=== PATIENT | male | born 1975 | race Caucasian/White ===

== ENCOUNTER 2018-06-22 07:10 | Emergency (ER) | payer BC ==
[2018-06-22 07:22] VITALS: BP 137/100
--- NOTE | 2018-06-22 07:53 | UC ---
Abdominal Pain Male HPI - HPI Summary HPI Summary: This is scribe [facility] documenting for attending Hans Brown MD. Patient is a 43 y/o M c/o abd pain onset ~1 day ago. Pain is located in the LLQ , described as spasms and rated a 5/10. Assoc. Sx: Nausea. Denies: V/D, constipation, fever. I, Dr. Brown, personally performed the services described in this documentation as scribed in my presence and it is both accurate and complete. - History of Current Complaint Chief Complaint: UCAbdominalPain Stated Complaint: ABD PAIN Time Seen by Provider: 06/22/18 07:19 Hx Obtained From: Patient Onset/Duration: Sudden Onset, Lasting Days, Still Present Pain Intensity: 4 Pain Scale Used: 0-10 Numeric Location: Discrete At: LLQ Radiates: No Character: Other - Spasms Associated Signs And Symptoms: Positive: Nausea. Negative: Vomiting, Diarrhea - Allergies/Home Medications Allergies/Adverse Reactions: Allergies Allergy/AdvReac Type Severity Reaction Status Date / Time bee stings Allergy Severe Anaphylatic Uncoded 06/22/18 08:52 Shock Home Medications: Home Medications EPINEPHrine SYR* [EPINEPHphrine SYR*] 0.1 mg IM SEE INSTRUCTIONS 06/22/18 [ History] PMH/Surg Hx/FS Hx/Imm Hx Endocrine History: Other Other Endocrine History: NEG: DM Cardiovascular History: Other Other Cardiovascular History: NEG: CAD, HTN - Surgical History Surgical History: Yes Surgery Procedure, Year, and Place: Cerebral angiogram for benign tumor. TONSILECTOMY. VASECTOMY - Family History Known Family History: Negative: Cardiac Disease, Hypertension, Diabetes - Social History Occupation: Employed Full-time Lives: With Family Alcohol Use: Daily Alcohol Amount: 2-3 beers Substance Use Type: None Smoking Status (MU): Current Every Day Smoker Type: Smokeless Tobacco Amount Used/How Often: 1 can every 3 days Have You Smoked in the Last Year: Yes - Immunization History Most Recent Tetanus Shot: WITHIN 5 YEARS Review of Systems Constitutional: Other - NEG: fever. Gastrointestinal: Nausea, Other - NEG: Vomiting, diarrhea, constipation. All Other Systems Reviewed And Are Negative: Yes Physical Exam - Summary Physical Exam Summary: VITAL SIGNS: Reviewed. GENERAL: Patient is a well-developed and nourished Male who is lying comfortable in the stretcher. Patient is not in any acute respiratory distress. HEAD AND FACE: Normocephalic EYES: PERRLA, EOMI x 2. EARS: Hearing grossly intact. MOUTH: Oropharynx within normal limits. NECK: Supple, trachea is midline, no adenopathy, no JVD, no carotid bruit. CHEST: Symmetric, no tenderness at palpation LUNGS: Clear to auscultation bilaterally. No wheezing or crackles. CVS: Regular rate and rhythm, S1 and S2 present, no murmurs or gallops appreciated. ABDOMEN: LLQ tenderness, Bowel sounds are normal. No abdominal abnormal pulsations. EXTREMITIES: Full ROM in all major joints, no edema, no cyanosis or clubbing. NEURO: Alert and oriented x 3. No acute neurological deficits. Speech is normal and follows Triage Information Reviewed: Yes Vital Signs: Initial Vital Signs Temp 96.8 F 06/22/18 07:17 Pulse 82 06/22/18 07:17 Resp 16 06/22/18 07:17 BP 137/100 06/22/18 07:17 Pulse Ox 98 06/22/18 07:17 Vital Signs Reviewed: Yes Abd Pain Male Course/Dx - Course Course Of Treatment: Patient is a 43-year-old male with the left upper quadrant pain. The patient is tender in the left flank and now is in the left upper quadrant. Differential diagnosis would be a kidney stone versus diverticulitis. Therefore, patient will be referred to the emergency department for further w/o and management. Patient declined ambulance transport. The patient was driving himself. Patient is hemoglobin after stable alert oriented 3. - Differential Dx/Clinical Impression Provider Diagnoses: lower abdominal pain Discharge - Sign-Out/Discharge Documenting (check all that apply): Patient Departure All imaging exams completed and their final reports reviewed: No Studies - Discharge Plan Condition: Stable Disposition: HOME-RECOMMEND TO ED Patient Education Materials: Acute Abdominal Pain (ED) Referrals: Benny Lopez DO [Primary Care Provider] - 3 Days Additional Instructions: Patient was recommended to go to the emergency room for further workup and management. The patient declined ambulance transfer. RETURN TO URGENT CARE FOR ANY WORSENING OR NEW SYMPTOMS. - Billing Disposition and Condition Condition: STABLE Disposition: Home-Recommend to ED - Attestation Statements Document Initiated by Scribe: Yes Documenting Scribe: [facility] Provider For Whom Scribe is Documenting (Include Credential): Hans Brown MD. Scribe Attestation: IPhong, scribed for Hans Brown MD. on 06/22/18 at 1553. Scribe Documentation Reviewed: Yes Provider Attestation: The documentation as recorded by the jayleenibPhong wallace accurately reflects the service I personally performed and the decisions made by me, Hans Brown MD.
== END 2018-06-22 07:58 | disposition home health service (06) ==
LOC: UCEAST 07:10
DX: R10.32 Left lower quadrant pain (principal); R10.12 Left upper quadrant pain; F17.290 Nicotine dependence, other tobacco product, uncomplicated
CPT/HCPCS: 99212; G0463

== ENCOUNTER 2018-06-22 08:30 | Emergency (ER) | payer BC ==
--- NOTE | 2018-06-22 08:56 | ED ---
Abdominal Pain/Male - HPI Summary HPI Summary: Pt. is a 43-year-old is emergency department for left-sided abdominal pain that started yesterday. Pt. describes pain as being intermittent and sharp in nature. Pain is located under his left ribs and radiates into for quadrant. Associated symptoms of nausea and chills. Denies vomiting, urinary symptoms, chest pain, shortness of breath. Patient does note a 3 day history of constipation. Patient denies significant past medical history. Symptoms are her in severity. Movement makes symptoms worse. Rest makes symptoms better. - History of Current Complaint Chief Complaint: EDAbdPain Stated Complaint: ABD PAIN Time Seen by Provider: 06/22/18 08:49 Hx Obtained From: Patient Pain Intensity: 4 - Allergies/Home Medications Allergies/Adverse Reactions: Allergies Allergy/AdvReac Type Severity Reaction Status Date / Time bee stings Allergy Severe Anaphylatic Uncoded 06/22/18 08:52 Shock PMH/Surg Hx/FS Hx/Imm Hx Previously Healthy: Yes Endocrine/Hematology History: Denies: Hx Diabetes, Hx Thyroid Disease Cardiovascular History: Denies: Hx Hypertension, Hx Pacemaker/ICD Respiratory History: Denies: Hx Asthma, Hx Chronic Obstructive Pulmonary Disease (COPD) GI History: Denies: Hx Ulcer History: Denies: Hx Renal Disease Sensory History: Denies: Hx Hearing Aid Psychiatric History: Denies: Hx Panic Disorder - Surgical History Surgery Procedure, Year, and Place: Cerebral angiogram for benign tumor. TONSILECTOMY. VASECTOMY Infectious Disease History: No Infectious Disease History: Denies: Hx Hepatitis, Hx Human Immunodeficiency Virus (HIV), Traveled Outside the [place] in Last 30 Days - Family History Known Family History: Negative: Cardiac Disease, Hypertension, Diabetes - Social History Occupation: Employed Full-time Lives: With Family Alcohol Use: Daily Alcohol Amount: 2-3 beers Substance Use Type: Reports: Marijuana Substance Use Comment - Amount & Last Used: last used @ 1 month ago Smoking Status (MU): Former Smoker Type: Smokeless Tobacco Amount Used/How Often: 1 can every 3 days Have You Smoked in the Last Year: Yes Review of Systems Positive: Chills. Negative: Fever Cardiovascular: Negative Negative: Palpitations Respiratory: Negative Negative: Shortness Of Breath Positive: Abdominal Pain, Nausea. Negative: Vomiting, Diarrhea Genitourinary: Negative Negative: dysuria, frequency, flank pain, hematuria Neurological: Negative All Other Systems Reviewed And Are Negative: Yes Physical Exam Triage Information Reviewed: Yes Vital Signs On Initial Exam: Initial Vitals Temp Pulse Resp BP Pulse Ox 97.7 F 72 18 132/103 99 06/22/18 08:40 06/22/18 08:40 06/22/18 08:40 06/22/18 08:40 06/22/18 08:40 Vital Signs Reviewed: Yes Appearance: Positive: Well-Appearing - Pt. lying in bed in NAD. present. Skin: Positive: Warm, Dry Head/Face: Positive: Normal Head/Face Inspection Eyes: Positive: Normal, EOMI Neck: Positive: Supple Respiratory/Lung Sounds: Positive: Clear to Auscultation, Breath Sounds Present Cardiovascular: Positive: Normal, RRR Abdomen Description: Positive: Other: - Abdomen is soft pain with palpation to the left upper quadrant and left lower quadrant into the suprapubic region with guarding. No rebound tenderness or rigidity. Neurological: Positive: Normal, CN Intact II-III Psychiatric: Positive: Affect/Mood Appropriate Diagnostics - Vital Signs Vital Signs Temp Pulse Resp BP Pulse Ox 06/22/18 08:40 97.7 F 72 18 132/103 99 - Laboratory Result Diagrams: 06/22/18 09:08 06/22/18 09:08 Lab Statement: Any lab studies that have been ordered have been reviewed, and results considered in the medical decision making process. Abdominal Pain Fem Course/Dx - Course Course Of Treatment: Patient presenting with left-sided abdominal pain. He is afebrile with stable vital signs. Will obtain basic blood work in urinalysis. CT scan ordered for further evaluation. He was given IV fluids and pain medication. Blood work and urinalysis are unremarkable. Based on exam concern for diverticulitis, CT scan contrast ordered. CT scan shows diverticulitis without abscess or complications, reading per radiology. Results were discussed with patient and . His blood work is unremarkable. We'll start on Cipro and Flagyl. Patient declined pain medication. Advised clear liquid diet. Advised high-fiber diet and to use stool softener for constipation. He' ll follow up with family doctor in his return to the ER for increased pain, fever, vomiting or if concerned. Patient understands and agrees with plan. - Diagnoses Differential Diagnosis/HQI/PQRI: Appendicitis, Bowel Obstruction, Constipation, Diverticulitis, Gall Bladder Disease, Hepatitis, Ischemic Bowel, Pancreatitis, Pneumonia, Renal Colic, Ureteral Stone, Urinary Tract Infection Provider Diagnoses: Diverticulitis Discharge - Sign-Out/Discharge Documenting (check all that apply): Patient Departure - Discharge Plan Condition: Good Disposition: HOME Prescriptions: Ciprofloxacin HCl [Cipro] 500 mg PO Q12HR #20 tablet metroNIDAZOLE [Flagyl 500 MG TAB] 500 mg PO TID 30 Days #1 tab Patient Education Materials: Diverticulitis (ED) Referrals: Benny Lopez DO [Primary Care Provider] - Additional Instructions: Schedule a follow up appointment Take antibiotics as directed Clear liquid diet x 3-5 days Return to ER for increased pain, fever, vomiting or if concerned - Billing Disposition and Condition Condition: GOOD Disposition: Home
[2018-06-22] MEDS ORDERED: Ketorolac INJ* 30 MG/ML 1 ML VIAL IV PUSH ONE (09:01)
[2018-06-22] MEDS ORDERED: NS 0.9% 1000 ML* 1,000 ML IV ONE (09:01)
[2018-06-22 09:14] LABS: ABS Basophils 0.1 10^3/ul (0-0.2); ABS Eosinophils 0.1 10^3/ul (0-0.6); ABS Lymphocytes 2.1 10^3/ul (1.0-4.8); ABS Neutrophils 6.5 10^3/ul (1.5-7.7); ABS Nucleated RBC 0 10^3/ul; Eosinophil % 1.3 % (0-6); Hematocrit 46 % (42-52); Hemoglobin 15.7 g/dl (14.0-18.0); Lymphocyte % 21.5 % (25-47); Mean Corpuscular HGB Conc 34 g/dl (31-36); Mean Corpuscular Hemoglobin 27 pg (27-31); Mean Corpuscular Volume 80 fL (80-94); Mean Platelet Volume 7.6 um3 (7.4-10.4); Nucleated Red Blood Cells % 0.3; Platelet Count 260 10^3/ul (150-450); Red Blood Count 5.72 10^6/ul (4.00-5.40); Red Cell Distribution Width 14 % (10.5-15); White Blood Count 9.8 10^3/ul (3.5-10.8)
[2018-06-22 09:30] LABS: EGFR Non-African American 80.6 (>60)
[2018-06-22 10:08] LABS: Urine Appearance Clear; Urine Blood Negative (Negative); Urine Color Yellow; Urine Ketones Negative (Negative); Urine Protein Negative (Negative); Urine Specific Gravity 1.016 (1.010-1.030); Urine Urobilinogen Negative (Negative)
[2018-06-22] MEDS ORDERED: Iohexol 300* (CONTRAST) 10 ML SDV IV ONE (10:23)
--- NOTE | 2018-06-22 10:48 | RAD ---
CLINICAL HISTORY: LLQ pain COMPARISON: None TECHNIQUE: Multiple contiguous axial CT scans were obtained of the abdomen and pelvis after the administration of intravenous contrast. Coronal and sagittal multiplanar reformations are submitted for review. Oral contrast was administered. Delayed images were obtained through the abdomen. FINDINGS: LUNG BASES: The lung bases are clear. LIVER: The liver is diffusely low in attenuation compared to the spleen. There are no focal hepatic parenchymal masses. The liver measures 19.7 cm in long axis. BILE DUCTS: There is no intrahepatic or extrahepatic biliary dilatation. GALLBLADDER: The gallbladder is normal, without pericholecystic inflammatory change. PANCREAS: The pancreas is normal, without mass or ductal dilatation. SPLEEN: Normal in size and appearance. UPPER GI TRACT: Evaluation of the gastrointestinal tract is limited by incomplete gastric distention. The upper GI tract is unremarkable. SMALL BOWEL AND MESENTERY: The small bowel is normal in contour, course, and caliber. There is no obstruction or dilatation. COLON: There is diverticulosis of the sigmoid colon with stranding of the pericolonic fat with associated mucosal thickening. There is fluid tracking along the lateroconal fascia on the left.. There is no loculated fluid collection to suggest abscess. There is a tubular, vermiform, hollow viscus that is blind ending, and originates from the cecum, consistent with a normal appendix. There is no periappendiceal inflammatory change. This is best seen on axial images 40 through 54. ADRENALS: Normal bilaterally. KIDNEYS: The kidneys are normal in shape, size, contour, and axis. There is no hydronephrosis or nephrolithiasis. BLADDER: The bladder is smooth in contour. PELVIC ORGANS: The prostate gland is normal. The seminal vesicles are symmetric. AORTA: There is mild calcific atherosclerotic disease of the abdominal aorta and its branches, without aneurysmal dilatation IVC: Unremarkable LYMPH NODES: There is no lymphadenopathy by size criteria. ABDOMINAL WALL: There is no evidence for abdominal wall hernia. BONES AND SOFT TISSUES: There are mild diffuse degenerative changes. OTHER: None IMPRESSION: 1. SIGMOID DIVERTICULITIS WITHOUT LOCULATED FLUID COLLECTION TO SUGGEST ABSCESS. 2. HEPATOMEGALY WITH FATTY INFILTRATION OF THE LIVER.
[2018-06-22 11:24] VITALS: BP 143/93
== END 2018-06-22 11:24 | disposition home or self-care (01) ==
LOC: ED 08:30
DX: K57.92 Diverticulitis of intestine, part unspecified, without perforation or abscess without bleeding (principal); Z87.891 Personal history of nicotine dependence
CPT/HCPCS: 36415; 74177; 80053; 81003; 83690; 85025; 96361; 96374; 96375; 99283; J1885; Q9967

== ENCOUNTER 2018-07-02 14:33 | Observation (INO) | payer BC ==
--- NOTE | 2018-07-02 15:22 | ED ---
HPI Chest Pain - HPI Summary HPI Summary: 43 y/o male presents to the ED c/o intermittent CP starting at around 12:30 today at work. CP described as chest pressure. Started feeling nauseous at around 11:00 this morning at work. Shortly thereafter the pt developed SOB and L arm numbness after lying down. Resolved now. Denies vomiting, diaphoresis. FHx grandfather - [place] in his 50's. No previous cardiac history. Associated sx: L side lower back pain. Pt currently on abx for diverticulitis. Former smoker. - History of Current Complaint Chief Complaint: EDChestPainROMI Hx Obtained From: Patient Onset/Duration: Started Hours Ago, Resolved Timing: Intermittent Current Severity: Mild Pain Intensity: 2 Pain Scale Used: 0-10 Numeric Character: Pressure/Squeezing Aggravating Factor(s): Nothing Alleviating Factor(s): Nothing Associated Signs and Symptoms: Positive: Chest Pain, Shortness of Breath, Nausea - Allergy/Home Medications Allergies/Adverse Reactions: Allergies Allergy/AdvReac Type Severity Reaction Status Date / Time bee stings Allergy Severe Anaphylatic Uncoded 07/02/18 16:13 Shock PMH/Surg Hx/FS Hx/Imm Hx Previously Healthy: No Endocrine/Hematology History: Denies: Hx Diabetes, Hx Thyroid Disease Cardiovascular History: Denies: Hx Hypertension, Hx Pacemaker/ICD Respiratory History: Denies: Hx Asthma, Hx Chronic Obstructive Pulmonary Disease (COPD) GI History: Denies: Hx Ulcer History: Denies: Hx Renal Disease Sensory History: Denies: Hx Hearing Aid Psychiatric History: Denies: Hx Panic Disorder - Surgical History Surgery Procedure, Year, and Place: Cerebral angiogram for benign tumor. TONSILECTOMY. VASECTOMY Infectious Disease History: No Infectious Disease History: Denies: Hx Hepatitis, Hx Human Immunodeficiency Virus (HIV), Traveled Outside the [place] in Last 30 Days - Family History Known Family History: Positive: Cardiac Disease - grandfather - [place] in 50's Negative: Hypertension, Diabetes - Social History Alcohol Use: Daily Alcohol Amount: 2-3 beers Hx Substance Use: Yes Substance Use Type: Reports: Marijuana Substance Use Comment - Amount & Last Used: last used @ 1 month ago Hx Tobacco Use: Yes Smoking Status (MU): Former Smoker Type: Smokeless Tobacco Amount Used/How Often: 1 can every 3 days Have You Smoked in the Last Year: Yes Review of Systems Constitutional: Negative Eyes: Negative ENT: Negative Positive: Chest Pain Positive: Shortness Of Breath Positive: Nausea. Negative: Vomiting Genitourinary: Negative Musculoskeletal: Negative Skin: Negative Neurological: Negative Psychological: Normal All Other Systems Reviewed And Are Negative: No Physical Exam - Summary Physical Exam Summary: Appearance: Alert, conversive, nontoxic appearing Skin: Warm, dry, no mottling, no rashes, no contusions HEENT: EOMI, PERRL, moist mucous membranes Neck: No masses on the neck, supple Respiratory: Clear to auscultation, breath sounds present, no rales, no rhonchi , no wheezes Cardiovascular: RRR, pulses are symmetrical in both lower and upper extremities Abdomen: Soft, non-tender Bowel Sounds: Present Musculoskeletal: No CVA tenderness, no obvious deformity, moving all extremities in a grossly normal manner Neurological: A&Ox3, CN II-XII Intact, moving all extremities symmetrically Psychiatric: Normal affect and mood Triage Information Reviewed: Yes Vital Signs On Initial Exam: Initial Vitals Temp Pulse Resp BP Pulse Ox 97.4 F 57 16 165/99 100 07/02/18 14:35 07/02/18 14:35 07/02/18 14:35 07/02/18 14:35 07/02/18 14:35 Vital Signs Reviewed: Yes Diagnostics - Vital Signs Vital Signs Temp Pulse Resp BP Pulse Ox 07/02/18 14:35 97.4 F 57 16 165/99 100 - Laboratory Result Diagrams: 07/02/18 15:29 07/02/18 15:29 Lab Statement: Any lab studies that have been ordered have been reviewed, and results considered in the medical decision making process. - Radiology CXR Xray Interpretation: No Acute Changes - No evidence for acute intrathoracic disease Radiology Interpretation Completed By: Radiologist - ED Physician reviews and agrees - EKG 1 EKG Interpretation: 14:42 - SB @ 55 BPM. Normal QRS, QTc, nonspecific ST T wave changes. Chest Pain Course/Dx - Course Assessment/Plan: Intermittent chest pressures starting at around 12:30 today. Associated sx: nausea, SOB, arm numbness. FHx - grandfather - [place] in 50's. CXR negative. EKG - 14:42 - SB @ 55 BPM. Normal QRS, QTc, nonspecific ST T wave changes. Pt willing to be admitted. Given ASA in ED course. Spoke with Dr. Zuniga at 16:15, who agreed to admit. - Diagnoses Provider Diagnoses: Chest pain - Provider Notifications Discussed Care Of Patient With: Sadia Zuniga Time Discussed With Above Provider: 16:22 Instructed by Provider To: Admit As Inpatient Discharge - Sign-Out/Discharge Documenting (check all that apply): Patient Departure - Discharge Plan Condition: Stable Disposition: ADMITTED TO [facility] Referrals: Benny Lopez DO [Primary Care Provider] - - Billing Disposition and Condition Condition: STABLE Disposition: Admitted to [facility] - Attestation Statements Document Initiated by Scribe: Yes Documenting Scribe: Anshul Dvais Provider For Whom Scribe is Documenting (Include Credential): Kristen Dickens MD Scribe Attestation: Anshul Guadarrama, scribed for Kristen Dickens MD on 07/02/18 at 1707. Scribe Documentation Reviewed: Yes Provider Attestation: The documentation as recorded by the Anshul bowens accurately reflects the service I personally performed and the decisions made by Kristen lee MD
[2018-07-02 15:43] LABS: ABS Basophils 0.1 10^3/ul (0-0.2); ABS Eosinophils 0.2 10^3/ul (0-0.6); ABS Lymphocytes 2.2 10^3/ul (1.0-4.8); ABS Monocytes 0.5 10^3/ul (0-0.8); ABS Neutrophils 2.6 10^3/ul (1.5-7.7); ABS Nucleated RBC 0 10^3/ul; Eosinophil % 2.8 % (0-6); Hematocrit 45 % (42-52); Hemoglobin 15.3 g/dl (14.0-18.0); Lymphocyte % 39.5 % (25-47); Mean Corpuscular HGB Conc 34 g/dl (31-36); Mean Corpuscular Hemoglobin 27 pg (27-31); Mean Corpuscular Volume 80 fL (80-94); Mean Platelet Volume 7.4 um3 (7.4-10.4); Nucleated Red Blood Cells % 0.1; Platelet Count 287 10^3/ul (150-450); Red Blood Count 5.64 10^6/ul (4.00-5.40); Red Cell Distribution Width 14 % (10.5-15); White Blood Count 5.6 10^3/ul (3.5-10.8)
--- NOTE | 2018-07-02 15:49 | RAD ---
Indication: Chest pain. LEFT arm numbness. Nausea, dizziness. Comparison: October 17, 2004 Technique: Upright AP 1529 hours Report: Clear lungs and pleural spaces. Negative for pneumothorax. The heart, pulmonary vasculature, and mediastinal contours are unremarkable. Unremarkable osseous structures and soft tissue contours. IMPRESSION: #. No evidence for acute intrathoracic disease.
[2018-07-02 16:02] LABS: EGFR Non-African American 74.6 (>60)
[2018-07-02] MEDS ORDERED: Aspirin TAB* 325 MG PO ONE (16:15)
[2018-07-02] MEDS ORDERED: Ondansetron INJ* 2 MG/ML VIAL IV PRN (17:13)
[2018-07-02] MEDS ORDERED: Acetaminophen TAB* 325 MG PO PRN (17:13)
[2018-07-02] MEDS ORDERED: Al Hydrox/Mg Hydrox/Simet LIQ* 30 ML UDC PO PRN (17:13)
[2018-07-02] MEDS ORDERED: Albuterol 2.5 MG/3 ML NEB.SOL* (0.083%) INH PRN (17:13)
[2018-07-02] MEDS ORDERED: Nitroglycerin TAB 0.4 MG* 0.4 MG TAB SL PRN (17:18)
--- NOTE | 2018-07-02 20:10 | HP ---
CC: Benny Lopez DO * ADMISSION HISTORY AND PHYSICAL: DATE OF ADMISSION: 07/02/18 ATTENDING HOSPITALIST: Sadia Zuniga DO * (DICTATED BY INOCENCIA GARCIA) PRIMARY CARE PHYSICIAN: Benny Lopez DO, from [place]. CHIEF COMPLAINT: Chest pain. HISTORY OF PRESENT ILLNESS: Mr. Seals is a 43-year-old gentleman with past medical history significant for anxiety disorder, GERD as well as a history of hypertension that he said has never been taking any medication for, who presented to the emergency room around noon today with complaints of intermittent chest pain since this morning. The patient notes that he started feeling a little nauseous at work around 10 o'clock this morning; shortly thereafter, he developed some shortness of breath with left arm numbness and tingling after lying down. He denied any vomiting, diaphoresis, but noticed some tightness in his chest. He has a family history of coronary artery disease in paternal grandfather, who had an SD back in his 50s. The patient himself has no prior cardiac history. He denies any headache, dizziness, palpitations, or any other associated symptoms. He presented to the emergency room and had laboratory workup that revealed normal blood count as well as normal chemistry. His troponin was drawn at 3:30 this afternoon and it was essentially negative. He had an EKG that showed sinus bradycardia with rates ranging in the upper 50s and no ST changes. Given his age and multiple risk factors, we were asked to see the patient for further evaluation and to consider admission to telemetry unit for serial troponins and to rule out acute coronary syndrome. PAST MEDICAL HISTORY: Significant for: 1. History of sigmoid diverticulitis for which the patient has been on antibiotics recently. 2. He also describes history of hypertension; however, has never been officially diagnosed and he is not taking any medication for it. 3. History of panic attack and anxiety for which he has been on meds about 10 years ago for a period of time, but he is not taking any medicine now. PAST SURGICAL HISTORY: Significant for tonsillectomy and ear tube placement in childhood. CURRENT MEDICATIONS: His medications at home include: 1. Epinephrine syringe 0.1 mg IM, use as needed for allergies. 2. Cipro 500 mg p.o. b.i.d. 3. Flagyl 500 mg p.o. t.i.d. ALLERGIES: Include allergies to BEE VENOM PROTEIN. FAMILY HISTORY: Reviewed and significant for coronary artery disease in his grandfather, who had an SD at age 50, but denies history of hypertension or diabetes. SOCIAL HISTORY: The patient is a nonsmoker, but he chews tobacco products. He drinks alcohol occasionally and caffeine intake is minimal. 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 He is and has 2 grownup teenagers. His is a healthcare proxy carrier and he wishes to be a full code. REVIEW OF SYSTEMS: See HPI. Otherwise, 14 points review of systems were examined and they were essentially negative. PHYSICAL EXAMINATION GENERAL: He is a pleasant healthy-appearing middle-aged gentleman, in no acute distress or discomfort at the time of admission. VITAL SIGNS: Revealed temperature of 97.4, pulse of 49, respirations of 11 with O2 sats of 100% on room air, and blood pressure of 107/76. HEENT: Head is normocephalic, atraumatic. Sclerae anicteric. PERRLA. EOMs intact. Oropharynx is pink and moist. NECK: Supple. Trachea midline. No cervical adenopathy, thyromegaly, or JVD. LUNGS: Clear to auscultation bilaterally. HEART: Regular rate and rhythm. Normal S1 and S2 without rubs, murmurs, or gallops. ABDOMEN: Soft, nontender, and nondistended. No hernias, masses, or hepatosplenomegaly. BACK: With normal curvature and no CVA tenderness. EXTREMITIES: Without cyanosis, clubbing, or edema. NEUROLOGIC: He is awake, alert, and oriented x4. Tongue is midline. Hand pool hall inspector is equal bilaterally and sensation is intact throughout. RECTAL: Exam deferred at this time. LABORATORY WORKUP: CBC with white count of 5600, hemoglobin 15.3, hematocrit of 45, and platelets of 289,000. Chemistry panel with sodium of 139, potassium 3.9, chloride 107, CO2 of 25, BUN of 12, and creatinine of 1.08. His glucose was 91, magnesium 1.9. LFTs within normal limits. Troponin of 0 and lipase of 231. The patient does note that he went golfing yesterday and had a few beers for the event. His TSH is 2.31. ACCESSORY DIAGNOSTIC DATA: Chest x-ray was done in the ED revealing no acute intrathoracic disease and his EKG showed sinus rhythm without any acute ST changes. IMPRESSION: A 43-year-old gentleman with past medical history significant for panic disorder in the remote past as well as gastroesophageal reflux disease, who presents to the emergency room with few hours' onset of chest tightness with associated nausea and left arm numbness and will be admitted to telemetry unit for observation for the following. ASSESSMENT AND PLAN: 1. Chest pain. Will be admitted to telemetry to rule out acute coronary syndrome. Serial troponins will be obtained. I will provide nitroglycerin sublingual as needed for chest pain and will set him up for a stress test tomorrow for further assessment. He appears to be comfortable at the time of admission and we will follow him accordingly. 2. Panic disorder. Appears to be an issue in the past; however, he seems to be comfortable at this time. 3. Gastroesophageal reflux disease. He has history of gastroesophageal reflux disease that he takes Tums or [id number] Prilosec for on occasion. We will make sure that he is covered and follow up with that. 4. DVT prophylaxis: He is a moderate risk and will be covered with SCDs. 5. Code status: He is a full code. 6. Disposition: Admit to telemetry for observation and rule out acute coronary syndrome. TIME SPENT: Approximately 60 minutes spent admitting this patient with greater than 50% on taking history and performing physical exam. I went on and discussed the case with my attending, who agreed to plan of care and will follow him accordingly. INOCENCIA GARCIA [id number]/[facility] #: [id number] ALYSSIA
[2018-07-03 05:49] LABS: ABS Basophils 0 10^3/ul (0-0.2); ABS Eosinophils 0.1 10^3/ul (0-0.6); ABS Monocytes 0.4 10^3/ul (0-0.8); ABS Neutrophils 2.5 10^3/ul (1.5-7.7); ABS Nucleated RBC 0 10^3/ul; Eosinophil % 2.8 % (0-6); Hematocrit 45 % (42-52); Hemoglobin 15.2 g/dl (14.0-18.0); Lymphocyte % 39.9 % (25-47); Mean Corpuscular HGB Conc 34 g/dl (31-36); Mean Corpuscular Hemoglobin 27 pg (27-31); Mean Corpuscular Volume 80 fL (80-94); Mean Platelet Volume 7.7 um3 (7.4-10.4); Nucleated Red Blood Cells % 0.3; Platelet Count 287 10^3/ul (150-450); Red Cell Distribution Width 14 % (10.5-15); White Blood Count 5.1 10^3/ul (3.5-10.8)
[2018-07-03 06:10] LABS: EGFR Non-African American 73.8 (>60)
[2018-07-03 07:58] VITALS: BP 126/82
--- NOTE | 2018-07-03 13:22 | RAD ---
INDICATION: Chest pain COMPARISON: None TECHNIQUE: A single day SPECT protocol was utilized. Rest images were acquired following the intravenous injection of 10.3 millicuries of technetium 99m tetrofosmin. Exercise stress images were acquired following the intravenous administration of 25.9 millicuries of technetium 99m tetrofosmin. This examination is limited due to lack of CT attenuation correction. Apparently the patient would not fit under the detected. The patient was exercised to a peak heart rate of 163 which is 92 % of age predicted maximum. FINDINGS: There are no defects of the stress-induced or fixed nature. The cardiac chamber size is normal. There are no wall motion abnormalities. The ejection fraction is calculated at 57 percent during stress. IMPRESSION: NO DEFECTS OR STRESS-INDUCED OR FIXED NATURE. ASSESSMENT: LOW-RISK Based on imaging criteria from ACC/AHA 2002 Guideline Update for the Management of Patients With Chronic Stable Angina Table 23. Noninvasive Risk Stratification.
--- NOTE | 2018-07-04 02:24 | DS ---
CC: Dr. Lopez from [place]. * DISCHARGE SUMMARY: DATE OF ADMISSION: 07/02/18 DATE OF DISCHARGE: 07/03/18 PATIENT OF ATTENDING HOSPITALIST: Sadia Zuniga DO PRIMARY CARE PHYSICIAN: Benny Lopez DO. ADMITTING PHYSICIAN AND ATTENDING HOSPITALIST: Sadia Zuniga DO.* (DICTATED INOCENCIA GARCIA) CONSULTATIONS: None. PROCEDURES: None. ADMISSION DIAGNOSES: 1. Chest pain. 2. History of gastroesophageal reflux disease. 3. History of panic attacks and anxiety. 4. History of hypertension that has been untreated. 5. History of sigmoid diverticulitis for which he has been on antibiotic recently. DISCHARGE DIAGNOSES: 1. Chest pain. 2. History of gastroesophageal reflux disease. 3. History of panic attacks and anxiety. 4. History of hypertension that has been untreated. 5. History of sigmoid diverticulitis for which he has been on antibiotic recently. HISTORY OF PRESENT ILLNESS: Mr. Seals is a 43-year-old gentleman with past medical history of anxiety disorder, GERD, as well as history of undiagnosed hypertension for which he has not been taking any meds who presented to the emergency room yesterday afternoon with complaints of intermittent chest pain since that morning. The patient notes that around 10 or 11 o'clock on the morning of 07/02/18, he had some nausea with associated cold sweats and some numbness on his left arm as well as mild chest pressure. He denied any vomiting , diaphoresis, or similar symptoms in the past. He was concerned since his grandfather had MO back when he was in his 50s. The patient himself has no prior cardiac history. He denied any headache, dizziness, palpitation. He has history of the panic attacks 10 years ago for which he was medicated for a period of time and denies any recurrent panic attacks or taking medication for years. He presented to the emergency room for evaluation and had normal laboratory workup including troponin value of 0. He had an EKG that showed sinus bradycardia with a regular rate ranging between mid 40s to upper 50s and there was no ST changes. Given his age, family history, and other risk factors , we were asked to see the patient to consider admission for observation obtaining serial troponin to rule out acute coronary syndrome. HOSPITAL COURSE: The patient was admitted under hospitalist services on and was monitored at the telemetry unit. He denied any further chest pain since his admission. He was noted to have sinus rhythm with a bradycardia ranging in the mid 40s to the upper 50s throughout the night and he continued to deny any chest pain symptoms. He had serial troponin that revealed 0 value for 3 draws at 3 hours apart. His EKG was repeated next morning and showed no significant changes since the original one. He went on and had a stress test performed earlier today was both the exercise and nuclear part that fortunately came back showing no evidence of any myocardial ischemia and the patient was considered low risk. He reports feeling very well today and denied any recurrent chest pain, nausea, diaphoresis, or any associated symptoms. He was anxious to get out of here and go back home. His vitals were stable today with a temperature of 97.8, pulse 49, respiration of 16 with O2 sat of 100% and blood pressure of 126/82. His heart was regular rate and rhythm without rubs, murmurs, or gallops. His lungs were clear to auscultation bilaterally. His abdomen was soft, nontender, and nondistended. LABORATORY DATA: His laboratory workup was repeated this morning as well revealing normal CBC, BNP, and his lipid panel was obtained showing cholesterol of 197, with triglycerides of 190, LDL of 120 and HDL of 39. The patient will be discharged to home in a stable condition and I advised him to continue using PPI as well as to follow up with his primary care physician regarding his both recent episodes of diverticulitis as well as recent chest pain. DISCHARGE MEDICATIONS: Include epinephrine intramuscular pen use as needed for BEE allergies. He will also continue his 1 day left of Cipro and Flagyl 500 mg q.12 hours and 500 mg q.8 hours respectively. I will start him also on omeprazole 20 mg p.o. daily. INOCENCIA GARCIA [id number]/[facility] #: [id number] ALYSSIA
== END 2018-07-03 15:00 | disposition home or self-care (01) ==
LOC: ED 14:33 → MEDTELE 18:19
PROVIDERS: ADMIT Hospitalist; ATTEND Hospitalist
DX: R07.9 Chest pain, unspecified (principal); R06.02 Shortness of breath; R11.0 Nausea; Z87.891 Personal history of nicotine dependence; Z87.19 Personal history of other diseases of the digestive system; F41.9 Anxiety disorder, unspecified; I10 Essential (primary) hypertension
CPT/HCPCS: 36415; 71045; 78452; 80048; 80053; 80061; 83690; 83735; 84443; 84484; 85025; 93005; 93017; 99282; A9502; G0378